=== PATIENT | male | born 1960 | race Caucasian/White ===

== ENCOUNTER 2020-05-20 06:54 | Outpatient (NON) | payer OTHER, SELFPAY ==
[2020-05-20 23:40] LABS: SARS-CoV-2 RNA PCR Negative
== END 2020-05-20 06:55 ==
PROVIDERS: PCP Family Medicine; Visit Provider Physician Assistant
DX: R50.9 Fever, unspecified (principal); Z20.828 Contact with and (suspected) exposure to other viral communicable diseases
CPT/HCPCS: 87635; C9803; U0003

== ENCOUNTER 2022-10-31 11:06 | Day surgery (SDC) | payer MEDICARE, SELFPAY ==
[2022-10-18 10:29] VITALS: BMI 22.4
--- NOTE | 2022-10-31 10:52 | WPDANESEPPF ---
Anes - Initial Pre Proc Eval Procedure: Operation Date: 10/31/22 13:00 Proposed Procedures p Screening Colonoscopy - Beny Birmingham MD Date/Time: 10/31/22 10:52 Surgeon: Beny Birmingham MD Pre Op Diagnosis: Neoplasm Screening, Screening Neoplasm of Rectum Patient Data Age: 61 Gender: M Height: 1.78 m Weight: 71 kg Allergies Allergy/AdvReac Type Severity Reaction Status Date / Time No Known Allergies Allergy Verified 10/17/22 13:34 Home Medications Medication Instructions Recorded Confirmed Type nitroglycerin 0.4 mg sublingual 0.4 mg sublingual Q5M PRN Chest 05/20/19 10/18/22 History tablet (Nitrostat) Pain clobetasol 0.05 % topical cream 1 applic topical BID PRN rash 14 01/21/22 10/18/22 Rx days #120 grams omeprazole 40 mg capsule,delayed See Rx Instructions .Route 06/30/22 10/18/22 Rx release .COMPLEX #180 caps amlodipine 10 mg tablet (Norvasc) 10 mg PO DAILY #90 tabs 07/18/22 10/18/22 Rx lisinopril 20 mg tablet 20 mg PO DAILY #90 tabs 07/18/22 10/18/22 Rx metoprolol succinate 100 mg 100 mg PO DAILY #90 tabs 07/18/22 10/18/22 Rx tablet,extended release 24 hr carisoprodol 350 mg tablet 350 mg PO TID PRN muscle pain #90 10/17/22 10/18/22 Rx tabs hydrocodone 10 mg-acetaminophen 1 tablet PO Q4H PRN pain #120 tabs 10/17/22 10/18/22 Rx 325 mg tablet amitriptyline 25 mg tablet 25 mg PO QHS #30 tabs 10/21/22 Rx sodium,potassium,mag sulfates 17.5 See Rx Instructions PO .COMPLEX 10/27/22 Rx gram-3.13 gram-1.6 gram oral soln #354 mL (Suprep Bowel Prep Kit) Patient hx anesthesia problems: none Family hx anesthesia problems: none Results Review: All pre-operative results and documents have been reviewed as part of the pre-operative evaluation. [facility] Past Medical History Medical History Anxiety Dyslipidemia Essential (primary) hypertension GERD without esophagitis Smoking Surgical History Surgical History History of back surgery three times Status post arthroscopy of left knee Family History Family History Father Acute myocardial infarction Family history of malignant neoplasm Hypertension Sibling Hypertension Family history of malignant neoplasm of breast in first degree relative Patient's sister is in good health Patient's brother is in good health Mother Patient's mother is in good health, Onset Age: 87 Hypertension Other Family history of arthritis Social History Social History Smoking packs per day: 1 Smoking cigarettes per day: 20.0 Years smoked: 40 Smoking pack-years: 40.00 Smoking status: Current every day smoker Tobacco type: cigarettes Second hand tobacco smoke exposure: No Alcohol intake: never Alcohol use details: rarely Substance use: never Substance use type: does not use Living arrangements: with family Occupation/Education: retired Gender identity (if verbalized by the patient): Male Sexual Orientation (if Verbalized by the Patient): Straight or Heterosexual Spiritual care concerns: No Anes - Eval Final PreProcedure Day of Procedure 10/31/22 10:52 Patient weight: normal Heart: regular rate and rhythm Lungs: clear to auscultation and normal air movement Airway: Mallampati scale class II Neurological: alert and oriented Last oral intake: >/= 8 hours ASA classification: II Emergent: no Anesthetic plan: proceed Anesthesia type and monitoring: general GIVS Results Review: All pre-operative results and documents have been reviewed as part of the pre-operative evaluation. Informed Consent: The patient's anesthetic plan and its attendant risks and benefits were discussed with the patient/family/POA. Questions were solicited and answers provided to the satisfaction of the patient/family/POA.
[2022-10-31 11:52] VITALS: BMI 20.7
[2022-10-31 11:54] VITALS: BP 121/69; PULSE 69; RESP 18; TEMP 37.2; O2SAT 99
--- NOTE | 2022-10-31 11:56 | PM.HPGS ---
History of Present Illness History of Present Illness Consent: Risks, benefits, and alternatives have been discussed and questions answered. Patient agrees to proceed with procedure. Chief complaint: Neoplasm Screening, Narrative: Jason Alvarez Sr. is a 61 year old male Presents for screening colonoscopy. Patient's current weight appetite and bowel movements are normal. Patient denies abdominal pain. He has had no bleeding. Family history is noncontributory. Review of Systems Review of Systems: Review of systems noncontributory. [facility] Past Medical History Medical History Anxiety Dyslipidemia Essential (primary) hypertension GERD without esophagitis Smoking Surgical History Surgical History History of back surgery three times Status post arthroscopy of left knee Family History Family History Father Acute myocardial infarction Family history of malignant neoplasm Hypertension Sibling Hypertension Family history of malignant neoplasm of breast in first degree relative Patient's sister is in good health Patient's brother is in good health Mother Patient's mother is in good health, Onset Age: 87 Hypertension Other Family history of arthritis Social History Social History Smoking packs per day: 1 Smoking cigarettes per day: 20.0 Years smoked: 40 Smoking pack-years: 40.00 Smoking status: Current every day smoker Tobacco type: cigarettes Second hand tobacco smoke exposure: No Alcohol intake: never Alcohol use details: rarely Substance use: never Substance use type: does not use Living arrangements: with family Occupation/Education: retired Gender identity (if verbalized by the patient): Male Sexual Orientation (if Verbalized by the Patient): Straight or Heterosexual Spiritual care concerns: No Meds Home Medications and Allergies Home Medications Medication Instructions Recorded Confirmed Type nitroglycerin 0.4 mg sublingual 0.4 mg sublingual Q5M PRN Chest 05/20/19 10/18/22 History tablet (Nitrostat) Pain clobetasol 0.05 % topical cream 1 applic topical BID PRN rash 14 01/21/22 10/18/22 Rx days #120 grams omeprazole 40 mg capsule,delayed See Rx Instructions .Route 06/30/22 10/18/22 Rx release .COMPLEX #180 caps amlodipine 10 mg tablet (Norvasc) 10 mg PO DAILY #90 tabs 02/20/23 05/23/23 Rx lisinopril 20 mg tablet 20 mg PO DAILY #90 tabs 07/18/22 10/18/22 Rx metoprolol succinate 100 mg 100 mg PO DAILY #90 tabs 07/18/22 10/18/22 Rx tablet,extended release 24 hr carisoprodol 350 mg tablet 350 mg PO TID PRN muscle pain #90 10/17/22 10/18/22 Rx tabs hydrocodone 10 mg-acetaminophen 1 tablet PO Q4H PRN pain #120 tabs 10/17/22 10/18/22 Rx 325 mg tablet amitriptyline 25 mg tablet 25 mg PO QHS #30 tabs 10/21/22 Rx sodium,potassium,mag sulfates 17.5 See Rx Instructions PO .COMPLEX 10/27/22 Rx gram-3.13 gram-1.6 gram oral soln #354 mL (Suprep Bowel Prep Kit) Allergies Allergy/AdvReac Type Severity Reaction Status Date / Time No Known Allergies Allergy Verified 10/17/22 13:34 Vital Signs Vital Signs - 24 hr 10/31/22 11:54 Temperature 99 F Pulse Rate 69 Respiratory Rate 18 Blood Pressure 121/69 Pulse Oximetry 99 Oxygen Delivery Room Air Exam Narrative: Physical exam reveals patient to be alert. Vital signs stable. HEENT exam is unremarkable. Patient is anicteric. Lungs are clear to auscultation and percussion. Heart is without murmur or extra sounds. Abdomen bowel sounds are present soft nontender with no organomegaly. Digital rectal exam is normal. Assessment and Plan Assessment and plan (1) Encounter for screening colonoscopy: Code(s): Z12.11 - Encounter for screening for malignant neoplasm of colon Status: Acute
[2022-10-31] MEDS: LACTATED RINGERS 1,000 ML 150 ML IV CONT (12:15)
[2022-10-31 12:57] VITALS: BP 89/52; PULSE 58; RESP 16; O2SAT 100
[2022-10-31 13:07] VITALS: BP 93/76; PULSE 60; RESP 18; O2SAT 100
[2022-10-31 13:17] VITALS: BP 126/58; PULSE 64; RESP 18; O2SAT 99
--- NOTE | 2022-10-31 13:23 | WPDANESPN ---
Anes - Prog Note Post-Op Date/Time: 10/31/22 13:23 Cardiovascular status: normal Respiratory status: normal Airway patency: baseline Mental status: baseline Post-Op hydration status: normal Vital Signs: Last Vital Signs Temp 37.2 C 10/31/22 11:54 Pulse 60 10/31/22 13:07 Resp 18 10/31/22 13:07 BP 93/76 L 10/31/22 13:07 Pulse Ox 100 10/31/22 13:07 O2 Del Method Room Air 10/31/22 13:07 Pain Score (VAS): 0 I/O: Intake & Output 10/30/22 10/31/22 10/31/22 23:59 07:59 15:59 Intake Total 300 Balance 300 Post-procedural complaints: none Patient Feedback: Patient satisfied with anesthetic care.
--- NOTE | 2022-10-31 13:45 | SUR.PHASEII ---
1335; PT DRESSED AND READY FOR DISCHARGE, WAITING FOR RIDE TO ARRIVE.
== END 2022-10-31 13:55 | disposition home or self-care (01) ==
PROVIDERS: PCP Family Medicine; Visit Provider Internal Medicine Gastroenterology
PROC: 0DJD8ZZ Inspection of Lower Intestinal Tract, Via Natural or Artificial Opening Endoscopic (ICD-10-PCS; CPT 45378; principal; 2022-10-31 13:00)
DX: Z12.11 Encounter for screening for malignant neoplasm of colon (principal)
CPT/HCPCS: 45378

== ENCOUNTER 2023-08-04 13:10 | Outpatient (CLI) | payer MEDICARE, SELFPAY ==
--- NOTE | ~2023-08-04 | CT_ITS ---
CT Scan of the Chest without Contrast: Clinical Indication: Lung cancer screening, personal history of nicotine dependence Technique: Contiguous sections were acquired throughout the chest without intravenous contrast. Dose reduction technique was used on this scan by utilizing automated exposure control and iterative recon struction technique. The dose-length product (DLP) was 71.58 mGy-cm. Findings: There is no evidence of any significant mediastinal, hilar or axillary lymphadenopathy. The mediastin al soft tissues appear normal. There is no evidence of pleural or pericardial effusion. 2 mm right upper lobe pulmonary nodule noted centrally. Images through the upper abdomen reveal no abnormalities. Impression: Lung RADS 2: Benign appearance. 12 month follow-up screening CT advised. Reviewed, dictated and finalized at location . [employer] Impression: Lung RADS 2: Benign appearance. 12 month follow-up screening CT advised.
== END 2023-08-04 13:11 | disposition home or self-care (01) ==
PROVIDERS: PCP Family Medicine; Visit Provider Family Medicine
DX: Z12.2 Encounter for screening for malignant neoplasm of respiratory organs (principal); Z87.891 Personal history of nicotine dependence
CPT/HCPCS: 71271